=== PATIENT | male | born 1955 | race Caucasian/White ===

== ENCOUNTER 2024-06-02 21:06 | Emergency (ER) | payer MEDICARE, SELFPAY ==
[2024-06-02 21:10] VITALS: BP 169/87; PULSE 79; RESP 17; TEMP 37; O2SAT 98
[2024-06-02 21:12] VITALS: BMI 21.2
[2024-06-02 21:37] VITALS: PULSE 84; RESP 18; O2SAT 98
--- NOTE | 2024-06-02 23:26 | XR_ITS ---
Examination: CT cervical spine without contrast 2-D sagittal reconstructions 2-D coronal reconstructions 3-D reconstructions. Exam date and time:June 02, 2024 11:13 PM INDICATIONS: Patient fell today with injury to the neck, neck pain CTDI:vol (mGy) 13.2 DLP: (mGycm) 311 Technique: Multiple 2 mm axial sections of the cervical spine have been obtained. The coronal and sagittal reconstructions have been obtained. 3-D reconstructions have been obtained. Low dose protocols were performed. One or more of the following dose reduction techniques were used; automated exposure control, adjustment of the mA and/or KV according to patient size, use of iterative reconstruction technique. Findings: Axial sections demonstrate intact base of the skull. Prominent cervical spondylosis C1 exhibit satisfactory relationship to the odontoid. No acute cervical vertebral body fracture seen. Alignment posterior spinous processes satisfactory. Impression: No acute cervical fracture.
--- NOTE | 2024-06-02 23:26 | XR_ITS ---
Examination: Knee, right , 3 views Technique: Knee AP, lateral, oblique 3 views Date and time of exam: June 02, 2024 11:58 PM INDICATIONS: Patient fell today with injury to the knee, knee pain. FINDINGS: Moderate to advanced tricompartment osteoarthritis Prominent osteopenia No acute fracture IMPRESSION: No acute fracture
--- NOTE | 2024-06-02 23:26 | XR_ITS ---
Examination: CT brain head without contrast. 2-D sagittal coronal reconstructions Date and time of exam:June 02, 2024 at 11:30 PM INDICATION: Patient fell today with into the face, facial pain CTDI: vol (mGy):48.1 DLP: (mGycm):979 Technique: Multiple CT axial sections of the brain have been obtained, 5 mm slice thickness. Contrast has not been administered. 2-D sagittal, coronal reconstructions have been obtained Low dose protocols were performed. One or more of the following dose reduction techniques were used; automated exposure control, adjustment of the mA and/or KV according to patient size, use of iterative reconstruction technique. Findings: No significant ventricular enlargement. Intra-axial or extra-axial hemorrhage density is not seen. No mass effect or midline shift Basal cisterns are not remarkable. Fourth ventricle is midline. Cranial vault intact. Impression: Negative for acute hemorrhage, mass effect or midline shift
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
[2024-06-02 23:30] VITALS: BP 178/96; PULSE 78; RESP 16; TEMP 36.9; O2SAT 98
[2024-06-03] MEDS: DIPHTH,PERTUSS(ACELL),TET VAC 0.5 ML SYR- ADULT IMi (00:07)
== END 2024-06-03 01:14 | disposition home or self-care (01) ==
PROVIDERS: Emergency Provider Emergency Medicine
DX: S00.83XA Contusion of other part of head, initial encounter (principal); S80.211A Abrasion, right knee, initial encounter; S19.9XXA Unspecified injury of neck, initial encounter; S40.211A Abrasion of right shoulder, initial encounter; S60.512A Abrasion of left hand, initial encounter; S00.11XA Contusion of right eyelid and periocular area, initial encounter; S60.511A Abrasion of right hand, initial encounter; V00.141A Fall from scooter (nonmotorized), initial encounter; Z23 Encounter for immunization
CPT/HCPCS: 70450; 70486; 72125; 73562; 90471; 90715; 99284